=== PATIENT | female | born 1970 | race Caucasian/White ===

== ENCOUNTER → 2017-08-14 07:40 | Outpatient (CLI) | payer OTHER | END | disposition home or self-care (01) | LOC: LAB 07:40 | DX: N91.1 Secondary amenorrhea (principal) ==

== ENCOUNTER 2017-08-14 08:07 | Outpatient (CLI) | payer OTHER | END 2017-08-14 08:10 | disposition home or self-care (01) | LOC: MAMO-SONO 08:07 | DX: Z12.31 Encounter for screening mammogram for malignant neoplasm of breast (principal); Z87.898 Personal history of other specified conditions; N60.11 Diffuse cystic mastopathy of right breast ==

== ENCOUNTER 2017-08-14 08:15 | Outpatient (CLI) | payer OTHER | END 2017-08-14 08:17 | disposition home or self-care (01) | LOC: RAD | DX: R05 Cough (principal) ==

== ENCOUNTER 2017-08-14 11:57 | Outpatient (CLI) | payer OTHER | END 2017-08-14 12:04 | disposition home or self-care (01) | LOC: EKG 11:57 | DX: R07.89 Other chest pain (principal) ==

== ENCOUNTER 2017-08-28 06:25 | Day surgery (SDC) | payer OTHER ==
[~2017-08-28 06:25] MED LIST: STELAZINE PO; ZOLOFT25 MG PO
== END 2017-08-28 17:05 | disposition home or self-care (01) ==
LOC: CIR.AMB 06:25
DX: N84.0 Polyp of corpus uteri (principal)

== ENCOUNTER 2025-05-11 02:18 | Emergency (ER) | payer OTHER ==
[~2025-05-11] VITALS: Ht 162.6 cm; Wt 78.0 kg
[2025-05-11] MEDS ORDERED: LORAZEPAM0.5 MG PO (02:39)
[2025-05-11] MEDS ORDERED: FAMOtidine 10 MG/ML (4ML VIAL) IV PUSH ONE (03:00)
[2025-05-11] MEDS ORDERED: KETOROLAC TROMETHAMINE 60 MG VIAL IM ONE (03:00)
[2025-05-11 03:37] LABS: BASO % 0.5 % (0.1-1.2); EOS # 0.02 (0.04-0.54); EOS % 0.2 % (0.7-7.0); LYMPH # 1.24 (1.18-3.74); LYMPH % 14.1 % (19.3-53.1); MEAN PLATELET VOLUME 11.00 fl (9.4-12.4); MONO # 0.58 (0.24-0.82); MONO % 6.6 % (4.7-12.5); NEUT # 6.88 (1.56-6.13); NEUT % 78.1 % (34.0-71.1); RED CELL DISTRIBUTION WIDTH 13.8 % (11.6-14.4)
[2025-05-11 04:00] LABS: ALT/SGPT 28.0 U/L (12-78); AST/SGOT 21.0 U/L (15-37); BILIRUBIN TOTAL 0.43 mg/dL (0.3-1.2); BUN CREA RATIO 19.0 (7.0-25.0); CREATININE SERUM 0.72 mg/dL (0.55-1.02); GFR 83.49; GLOBULINA 2.7 G/DL (2.4-3.5); GLUCOSE FASTING 122.0 mg/dL (65-100); OSMOLALITY SERUM 283.0 MOSM/KG (275-295)
[2025-05-11] MEDS ORDERED: NORFLEX100MG PO (04:40)
[2025-05-11] MEDS ORDERED: TAMS0.4C PO (04:40)
[2025-05-11] MEDS ORDERED: PEPCID AC20 MG PO (04:40)
[2025-05-11] MEDS ORDERED: CIPRO500 MG PO (04:40)
== END 2025-05-11 04:58 | disposition home or self-care (01) ==
LOC: ER 02:18
PROVIDERS: General Practice
DX: N20.0 Calculus of kidney (principal); K59.00 Constipation, unspecified; Z88.2 Allergy status to sulfonamides
CPT/HCPCS: 36415; 74176; 96365; 96372; 99283; J1885; J3490